=== PATIENT | male | born 1940 | race Caucasian/White ===

== ENCOUNTER 2023-01-18 22:14 | Emergency (ER) | payer MEDICARE, BC ==
[~2023-01-18] VITALS: Ht 175.3 cm; Wt 95.3 kg
[2023-01-18] MEDS ORDERED: LIDOCAINE 1% INJ 50 ML MDV IJ ONE (23:30)
[2023-01-18] MEDS ORDERED: TDAP [DIPH/PERTUSSIS/TET] 0.5 ML VIAL IM ONE ×2 (23:30→23:37)
[2023-01-19] MEDS ORDERED: LIDOCAINE MPF 1%-EPI 1:200,000 30 ML VIAL IJ ONE (00:45)
[2023-01-19 01:54] VITALS: BP 142/72; TEMP 98.5; O2SAT 94
== END 2023-01-19 01:56 | disposition left against medical advice (07) ==
LOC: ER 22:15
DX: S61.412A Laceration without foreign body of left hand, initial encounter (principal); I10 Essential (primary) hypertension; F32.A Depression, unspecified; W22.8XXA Striking against or struck by other objects, initial encounter; Y93.89 Activity, other specified; Y92.89 Other specified places as the place of occurrence of the external cause; Y99.8 Other external cause status
CPT/HCPCS: 99283; 90471; 90715; 73130; A6403; J3490

== ENCOUNTER 2023-05-29 15:08 | Inpatient (IN) | payer MEDICARE, BC ==
[~2023-05-29] VITALS: Ht 175.3 cm; Wt 99.3 kg
[2023-05-29] MEDS ORDERED: IV NS 0.9% 1,000 ML BAG IV ONE (17:30)
[2023-05-29] MEDS ORDERED: CEFEPIME 1 GM in IV D5W 50 ML IV ONE (17:30)
[2023-05-29] MEDS ORDERED: VANCOMYCIN 1 GM in IV D5W 250 ML IV ONE (17:30)
[2023-05-29] MEDS ORDERED: TAMS-12 PO (17:51)
[2023-05-29] MEDS ORDERED: LATA2.5D15 EACHEYE (17:51)
[2023-05-29] MEDS ORDERED: FINA5TAB4 PO (17:51)
[2023-05-29] MEDS ORDERED: BUPR300T52 PO (17:51)
[2023-05-29] MEDS ORDERED: SIMV10TA98 PO (17:51)
[2023-05-29] MEDS ORDERED: FLUO20CA36 PO (17:51)
[2023-05-29] MEDS ORDERED: VORT10TA PO (17:51)
[2023-05-29 17:57] LABS: BASOPHILS # (AUTO) 0.1 K/uL (0.0-0.2); BASOPHILS % (AUTO) 0.6 % (0.0-2.0); EOSINOPHILS # (AUTO) 0.2 K/uL (0.0-0.7); EOSINOPHILS % (AUTO) 2.2 % (0.0-6.0); HEMATOCRIT 45 % (39-51); HEMOGLOBIN 14.5 g/dL (13.5-17.5); LYMPHOCYTES # (AUTO) 2.5 K/uL (0.8-4.8); LYMPHOCYTES % (AUTO) 30.6 % (20.0-44.0); MEAN CORPUSCULAR HEMOGLOBIN 27 PG (26.0-33.0); MEAN CORPUSCULAR HGB CONC 33 g/dl (31.0-36.0); MEAN CORPUSCULAR VOLUME 82 fL (80-96); MONOCYTES # (AUTO) 0.8 K/uL (0.1-1.30); MONOCYTES % (AUTO) 9.3 % (2.0-12.0); NEUTROPHILS # (AUTO) 4.7 K/uL (1.8-8.9); NEUTROPHILS % (AUTO) 57.3 % (43.0-81.0); PLATELET COUNT (AUTO) 192 K/uL (150-450); RED BLOOD CELL COUNT(AUTO) 5.46 MIL/uL (4.5-6.0); RED CELL DISTRIBUTION WIDTH 14.3 % (11.5-15.0); WHITE BLOOD COUNT (AUTO) 8.3 K/uL (4.3-11.0)
[2023-05-29 18:14] LABS: INR 0.98 (0.91-1.10); PARTIAL THROMBOPLASTIN TIME 27.5 SEC (24.3-34.3); PROTHROMBIN TIME 10.4 SECS (9.2-11.1)
[2023-05-29 18:21] LABS: LACTIC ACID 1.8 mmol/L (0.4-2.0)
[2023-05-29 18:46] LABS: CALCIUM, SERUM 10.3 mg/dL (8.5-10.1); CARBON DIOXIDE 26 mmol/L (21-32); CHLORIDE 103 mmol/L (98-107); CREATININE 1.2 mg/dL (0.6-1.3); GLUCOSE 108 mg/dL (74-106); POTASSIUM 4.1 mmol/L (3.5-5.1); SODIUM SERUM 138 mmol/L (136-145); UREA NITROGEN, BLOOD 26 mg/dL (7-18)
[2023-05-29 18:57] LABS: ALANINE AMINOTRANSFERASE 28 U/L (12-78); ALBUMIN 3.6 g/dL (3.4-5.0); ALKALINE PHOSPHATASE 75 U/L (46-116); ASPARTATE AMINOTRANSFERASE 24 U/L (15-37); BILIRUBIN,DIRECT 0.2 mg/dL (0.0-0.2); TOTAL PROTEIN, SERUM 7.4 g/dL (6.4-8.2)
[2023-05-29] MEDS ORDERED: ZOLPIDEM TARTRATE 5 MG TABLET PO PRN (21:00)
[2023-05-29] MEDS ORDERED: ONDANSETRON HCL/PF 4 MG/2 ML VIAL IVP PRN (21:00)
[2023-05-29] MEDS ORDERED: ACETAMINOPHEN 325 MG TABLET PO PRN (21:00)
[2023-05-29] MEDS ORDERED: MAGNESIUM HYDROXIDE 30 ML UDC PO PRN (21:00)
[2023-05-29] MEDS ORDERED: MAG HYDROX/AL HYDROX/SIMETH 30 ML UDC PO PRN (21:00)
[2023-05-29] MEDS ORDERED: Z GUARD REMEDY 4 OZ OINT TP PRN (21:00)
[2023-05-29] MEDS: CEFEPIME 1 GM in IV D5W 50 ML IV SCH (21:12)
[2023-05-29] MEDS: ENOXAPARIN SODIUM 40 MG/0.4 ML DISP.SYRIN SQ SCH (21:12)
[2023-05-29] MEDS ORDERED: LATANOPROST EYE DROP 0.005% 2.5 ML BOTTLE EACHEYE SCH (22:00)
[2023-05-30] MEDS: VANCOMYCIN HCL 0.75 GM in IV D5W 250 ML IV SCH ×2 (08:37→22:26)
[2023-05-30] MEDS ORDERED: PANTOPRAZOLE 40 MG VIAL ONE (08:39)
[2023-05-30] MEDS ORDERED: BUPROPION XL 150 MG TAB.ER.24 PO ONE (08:40)
[2023-05-30] MEDS: PANTOPRAZOLE 40 MG VIAL IV SCH (08:45)
[2023-05-30] MEDS: FLUOXETINE HCL 20 MG CAPSULE PO SCH (08:46)
[2023-05-30 09:08] LABS: BASOPHILS % (AUTO) 0.6 % (0.0-2.0); EOSINOPHILS # (AUTO) 0.1 K/uL (0.0-0.7); EOSINOPHILS % (AUTO) 0.8 % (0.0-6.0); HEMATOCRIT 47 % (39-51); HEMOGLOBIN 15.5 g/dL (13.5-17.5); LYMPHOCYTES # (AUTO) 2.3 K/uL (0.8-4.8); LYMPHOCYTES % (AUTO) 26.5 % (20.0-44.0); MEAN CORPUSCULAR HEMOGLOBIN 27 PG (26.0-33.0); MEAN CORPUSCULAR HGB CONC 33 g/dl (31.0-36.0); MEAN CORPUSCULAR VOLUME 82 fL (80-96); MONOCYTES # (AUTO) 0.8 K/uL (0.1-1.30); MONOCYTES % (AUTO) 8.8 % (2.0-12.0); NEUTROPHILS # (AUTO) 5.6 K/uL (1.8-8.9); NEUTROPHILS % (AUTO) 63.3 % (43.0-81.0); PLATELET COUNT (AUTO) 191 K/uL (150-450); RED BLOOD CELL COUNT(AUTO) 5.79 MIL/uL (4.5-6.0); RED CELL DISTRIBUTION WIDTH 14.5 % (11.5-15.0); WHITE BLOOD COUNT (AUTO) 8.8 K/uL (4.3-11.0)
[2023-05-30] MEDS: BUPROPION XL 150 MG TAB.ER.24 PO SCH (09:21)
[2023-05-30 09:32] LABS: CALCIUM, SERUM 9.7 mg/dL (8.5-10.1); PHOSPHORUS 1.8 mg/dL (2.5-4.9); POTASSIUM 3.5 mmol/L (3.5-5.1)
[2023-05-30] MEDS ORDERED: K PHOS NEUTRAL 250 MG TABLET PO ONE (16:00)
[2023-05-30] MEDS ORDERED: K PHOS NEUTRAL 250 MG TABLET ONE (16:07)
[2023-05-30] MEDS ORDERED: TAMSULOSIN 0.4 MG CAP.SR.24H ONE (18:40)
[2023-05-30] MEDS ORDERED: SIMVASTATIN 10 MG TABLET ONE (18:41)
[2023-05-30] MEDS: FINASTERIDE (5 MG) 5 MG TABLET PO SCH (18:48)
[2023-05-30] MEDS: TAMSULOSIN 0.4 MG CAP.SR.24H PO SCH (18:48)
[2023-05-30] MEDS: SIMVASTATIN 10 MG TABLET PO SCH (18:49)
[2023-05-30] MEDS: CEFEPIME 1 GM in IV D5W 50 ML IV SCH (21:40)
[2023-05-30] MEDS: LATANOPROST EYE DROP 0.005% 2.5 ML BOTTLE EACHEYE SCH (22:29)
[2023-05-30] MEDS: ENOXAPARIN SODIUM 40 MG/0.4 ML DISP.SYRIN SQ SCH (22:36)
[2023-05-31 04:00] VITALS: BP 107/63; TEMP 98; O2SAT 96
[2023-05-31] MEDS: PANTOPRAZOLE 40 MG VIAL IV SCH (09:29)
[2023-05-31] MEDS: VANCOMYCIN HCL 0.75 GM in IV D5W 250 ML IV SCH ×2 (09:30→21:51)
[2023-05-31] MEDS: BUPROPION XL 150 MG TAB.ER.24 PO SCH (09:33)
[2023-05-31] MEDS: FLUOXETINE HCL 20 MG CAPSULE PO SCH (09:33)
[2023-05-31] MEDS ORDERED: IV NS 0.9% 250 ML IV PRN (17:00)
[2023-05-31] MEDS: FINASTERIDE (5 MG) 5 MG TABLET PO SCH (17:54)
[2023-05-31] MEDS: TAMSULOSIN 0.4 MG CAP.SR.24H PO SCH (17:54)
[2023-05-31] MEDS: SIMVASTATIN 10 MG TABLET PO SCH (17:54)
[2023-05-31 20:00] VITALS: BP 138/73; TEMP 97.5; O2SAT 99
[2023-05-31] MEDS: ENOXAPARIN SODIUM 40 MG/0.4 ML DISP.SYRIN SQ SCH (21:45)
[2023-05-31] MEDS: CEFEPIME 1 GM in IV D5W 50 ML IV SCH (21:50)
[2023-05-31] MEDS: LATANOPROST EYE DROP 0.005% 2.5 ML BOTTLE EACHEYE SCH (23:24)
[2023-06-01 04:00] VITALS: BP 134/65; TEMP 98.8; O2SAT 95
[2023-06-01] MEDS ORDERED: CLIN300C12 PO (07:18)
[2023-06-01] MEDS: BUPROPION XL 150 MG TAB.ER.24 PO SCH (08:28)
[2023-06-01] MEDS: FLUOXETINE HCL 20 MG CAPSULE PO SCH (08:28)
[2023-06-01] MEDS: VANCOMYCIN HCL 0.75 GM in IV D5W 250 ML IV SCH (08:31)
[2023-06-01] MEDS ORDERED: PANTOPRAZOLE 40 MG TABLET.DR PO SCH (09:00)
[2023-06-01 10:23] LABS: CALCIUM, SERUM 9.3 mg/dL (8.5-10.1); CARBON DIOXIDE 22 mmol/L (21-32); CHLORIDE 101 mmol/L (98-107); CREATININE 1.3 mg/dL (0.6-1.3); GLUCOSE 178 mg/dL (74-106); POTASSIUM 3.3 mmol/L (3.5-5.1); SODIUM SERUM 131 mmol/L (136-145); UREA NITROGEN, BLOOD 21 mg/dL (7-18)
[2023-06-01 10:55] LABS: APPEARANCE,URINE SLIGHTLY CLOUDY (CLEAR); BILIRUBIN,URINE NEGATIVE (NEGATIVE); BLOOD, URINE 3+ Ery/uL (NEGATIVE); COLOR,URINE YELLOW (YELLOW); KETONES,URINE NEGATIVE (NEGATIVE); LEUKOCYTE ESTERASE ,URINE 1+ (NEGATIVE); NITRITE, URINE NEGATIVE (NEGATIVE); PROTEIN,URINE 2+ mg/dl (NEGATIVE); UGLUCOSE NEGATIVE (NEGATIVE); UROBILINOGEN,URINE 0.2 EU/dL (0.2)
[2023-06-01 11:47] LABS: ADD URINE CULTURE YES; BACTERIA,URINE None seen /HPF (None Seen); RBC,URINE TOO NUMEROUS TO COUN /HPF (0-2); SQUAMOUS EPITHELIAL CELL,UR None Seen /HPF (None Seen)
[2023-06-01 11:48] LABS: MUCUS,URINE Moderate /LPF (None Seen)
== END 2023-06-01 11:18 | disposition home or self-care (01) | DRG 603 ==
LOC: ER 15:12 → TRANSITION 05-30 07:34 → MEDSG1 05-30 20:36
PROVIDERS: ADMIT Nurse Practitioner Acute Care; ATTEND Internal Medicine
DX: L03.116 Cellulitis of left lower limb (principal); E86.0 Dehydration; N40.0 Benign prostatic hyperplasia without lower urinary tract symptoms; R79.89 Other specified abnormal findings of blood chemistry; E66.9 Obesity, unspecified; F32.A Depression, unspecified; Z68.32 Body mass index [BMI] 32.0-32.9, adult
CPT/HCPCS: 36415; 71045-TC; 80048-TC; 80061-TC; 80076-TC; 80202-TC; 81001; 83605-TC; 83735-TC; 84100-TC; 85025-TC; 85730-TC; 87040-TC; 87086-TC; 93971-TC; 97112-TC; 97116-TC; 97530-TC; A4223; A4349; A6253; C9113; G0378; J0692; J1650; J3370; J7030; J7050; J7060

== ENCOUNTER 2025-03-04 19:08 | Emergency (ER) | payer MEDICARE, BC ==
[~2025-03-04] VITALS: Ht 175.3 cm; Wt 91.6 kg
[~2025-03-04 19:08] MED LIST: BUPR300T52 PO; CLIN300C12 PO; FINA5TAB4 PO; FLUO20CA36 PO; LATA2.5D15 EACHEYE; SIMV10TA98 PO; TAMS-12 PO; VORT10TA PO
[2025-03-04] MEDS ORDERED: PRED50TA PO (20:15)
[2025-03-04 20:23] VITALS: BP 132/78; TEMP 98; O2SAT 97
== END 2025-03-04 20:24 | disposition home or self-care (01) ==
LOC: ER 19:13
DX: G51.0 Bell's palsy (principal); E78.5 Hyperlipidemia, unspecified; F32.A Depression, unspecified; Z79.899 Other long term (current) drug therapy; Z88.2 Allergy status to sulfonamides; H40.9 Unspecified glaucoma